=== PATIENT | female | born 1975 | race Caucasian/White ===

== ENCOUNTER 2019-03-17 23:34 | Emergency (ER) | payer MEDICAID ==
[~2019-03-17] VITALS: Ht 157.5 cm; Wt 59.9 kg
[~2019-03-17 23:34] MED LIST: FERR325E14 PO; IBUP-974 PO; PREN-385 PO
[2019-03-17 23:40] VITALS: BP 117/63
--- NOTE | 2019-03-17 23:40 | NUR ---
TO BED # 09 AMBULATORY
--- NOTE | 2019-03-17 23:53 | NUR ---
PT TAKEN TO BED 5
--- NOTE | 2019-03-17 23:55 | NUR ---
PT HAS C/O LOWER ABD PAIN IN LLQ AND RLQ 6/10. PT STATES SHE HAS BEEN BLEEDING HEAVILY X 1.5 HOURS. "I'M 11 WEEKS PREGNDENIES COUGH. AFEBRLIE. DENIES N/V/D. PT PRESENTS WITH NON-PRODUCTIVE COUGH AND STATES SHE HAS HAD IT FOR X 1 WEEK. PT RESPIRATIONS ARE EVEN AND UNLABORED. SKIN IS WARM AND DRY TO TOUCH. PT AXO X4. ABLE TO MAKE NEEDS KNOWN. [place]GENT[place] SPEAKING ONLY. NEICE AT BEDSIDE. BED IN LOWEST POSITION AND LOCKED IN PLACE. MED HX: NONE ALLERGIES: NONE Addendum: 03/18/19 at 0304 by [email or web address] PT HAS C/O LOWER ABD PAIN IN LLQ AND RLQ 6/10. PT STATES SHE HAS BEEN BLEEDING HEAVILY X 1.5 HOURS. "I'M 11 WEEKS ." DENIES COUGH. AFEBRLIE. DENIES N/V/D. PT PRESENTS WITH NON-PRODUCTIVE COUGH AND STATES SHE HAS HAD IT FOR X 1 WEEK. PT RESPIRATIONS ARE EVEN AND UNLABORED. SKIN IS WARM AND DRY TO TOUCH. PT AXO X4. ABLE TO MAKE NEEDS KNOWN. ARGENTINE SPEAKING ONLY. NEICE AT BEDSIDE. BED IN LOWEST POSITION AND LOCKED IN PLACE. MED HX: NONE ALLERGIES: NONE
--- NOTE | 2019-03-18 00:05 | NUR ---
DR. HUITRON AT BEDSIDE.
[2019-03-18 00:50] LABS: BASOPHILS % (AUTO) 0.1 % (0.0-2.0); EOSINOPHILS # (AUTO) 0.2 K/uL (0-0.4); EOSINOPHILS % (AUTO) 1.6 % (0.0-4.0); HEMATOCRIT 38.6 % (36-48); HEMOGLOBIN 13.3 g/dL (12.0-16.0); LYMPHOCYTES # (AUTO) 3.4 K/uL (2.5-16.5); LYMPHOCYTES % (AUTO) 35.8 % (20.5-51.1); MEAN CORPUSCULAR HEMOGLOBIN 30 pg (27-31); MEAN CORPUSCULAR HGB CONC 34 g/dL (33-37); MEAN CORPUSCULAR VOLUME 86.3 fL (80-94); MONOCYTES % (AUTO) 10.8 % (1.7-9.3); NEUTROPHILS # (AUTO) 4.9 K/uL (1.8-7.7); NEUTROPHILS % (AUTO) 51.7 % (42.2-75.2); PLATELET COUNT (AUTO) 237 K/uL (140-450); RED BLOOD CELL COUNT(AUTO) 4.47 MIL/uL (4.20-5.40); RED CELL DISTRIBUTION WIDTH 12.8 % (11.6-13.7); WHITE BLOOD COUNT (AUTO) 9.5 K/uL (4.8-10.8)
--- NOTE | 2019-03-18 01:05 | NUR ---
Ultrasound at bedside.
--- NOTE | 2019-03-18 01:10 | NUR ---
PT AMBULATED WITH NEICE TO FROM RESTROOM TO BED. PT STATES SHE CONTINUES TO HAVE HEAVY VAGINAL BLEEDING. PT RESTING IN BED SITTING UPRIGHT. PT RESPIRATIONS ARE EVEN AND UNLABORED. SKIN IS WARM AND DRY TO TOUCH. WILL CONTINUE TO MONITOR.
[2019-03-18 01:32] LABS: BILIRUBIN,URINE 1+ (NEGATIVE); BLOOD, URINE 3+ (NEGATIVE); LEUKOCYTE ESTERASE ,URINE NEGATIVE (NEGATIVE); NITRITE, URINE NEGATIVE (NEGATIVE); UGLUCOSE NEGATIVE (NEGATIVE)
[2019-03-18 01:39] LABS: APPEARANCE,URINE BLOODY (CLEAR)
[2019-03-18 01:40] LABS: COLOR,URINE RED (YELLOW)
[2019-03-18 01:43] LABS: RBC,URINE TOO NUMEROUS TO COUN /HPF (0-5); WBC,URINE 0-5 /HPF (0-5)
--- NOTE | 2019-03-18 02:00 | NUR ---
PT CHUCKS PAD CHANGED AND NOTED WITH BLOOD CLOTS AND TISSUES SEEN. MADE AWARE.
--- NOTE | 2019-03-18 02:15 | NUR ---
DR. HUITRON AT BEDSIDE.
[2019-03-18 02:45] VITALS: BP 110/79
--- NOTE | 2019-03-18 02:45 | NUR ---
Patient discharged with v/s stable. Written and verbal after care instructions given and explained. Patient verbalized understanding. Ambulatory with steady gait. All questions addressed prior to discharge. Advised to follow up with PMD.
== END 2019-03-18 02:45 | disposition home or self-care (01) ==
LOC: MED 23:34
DX: O03.9 Complete or unspecified spontaneous abortion without complication (principal); Z79.899 Other long term (current) drug therapy; Z3A.10 10 weeks gestation of pregnancy
CPT/HCPCS: 36415; 76817; 81001; 84702; 85025; 99284; Q0092